=== PATIENT | male | born 2000 | race Caucasian/White ===

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

== ENCOUNTER 2020-01-12 15:01 | Emergency (ER) | payer OTHER ==
[~2020-01-12] VITALS: Ht 185.4 cm; Wt 66.9 kg
[2020-01-12 15:10] VITALS: BP 133/86
--- NOTE | 2020-01-12 15:16 | NUR ---
PT AMBULATED TO ER BED 02
--- NOTE | 2020-01-12 15:20 | NUR ---
BIB MOTHER C/O COUGH, RUNNY NOSE X 3 DAYS, LEFT EAR PAIN X TODAY. PT AWAKE , ALERT , AFIBRILE , AMBULATORY WITH STEADY GAIT , DENIES LEFT EAR TRUAMA , NO HEARING DEFICIT. MED HX: DENIES
--- NOTE | 2020-01-12 15:30 | NUR ---
dr branham evaluating pt.
[2020-01-12 15:36] VITALS: BP 133/86
--- NOTE | 2020-01-12 15:37 | NUR ---
Patient discharged with v/s stable. Written and verbal after care instructions given and Dr Branham explained regarding otitis media infection. Patient alert, oriented and verbalized understanding of instructions. Ambulatory with by parent. All questions addressed prior to discharge. ID band removed. Patient advised to follow up with PMD. Rx of augmentin given. Patient educated on indication of medication including possible reaction and side effects. Opportunity to ask questions provided and answered.Dr branham discharge pt.
--- NOTE | 2020-01-12 15:40 | NUR ---
Gema simons in [facility] - 01/12/20 at [address] branham at bedside evaluating pt.
== END 2020-01-12 15:37 | disposition home or self-care (01) ==
LOC: MED 15:01
DX: H66.92 Otitis media, unspecified, left ear (principal); R05 Cough; J34.89 Other specified disorders of nose and nasal sinuses
CPT/HCPCS: 99283

== ENCOUNTER 2020-01-12 17:43 | Emergency (ER) | payer OTHER ==
[~2020-01-12] VITALS: Ht 185.4 cm; Wt 66.7 kg
[2020-01-12 18:07] VITALS: BP 115/67
[2020-01-12] MEDS ORDERED: ONDANSETRON 4 MG TAB PO ONE (18:10)
--- NOTE | 2020-01-12 18:15 | NUR ---
19 Y/O MALE PRESENTS WITH VOMITING/NAUSEA STARTING X1 HOUR AGO AFTER LEAVING ER FOR EAR INFECTION. REPORTS TO ABD PAIN AT THIS TIME. BOWEL SOUNDS NORMO ACTIVE. ABD SOFT/NON TENDER AT THIS TIME. RESP EVEN AND UNLABORED. NO PMH NKA
--- NOTE | 2020-01-12 18:40 | NUR ---
Pt resting in bed with parents at bedside. No further emesis episodes.
--- NOTE | 2020-01-12 19:01 | NUR ---
Transfer of care and report given to BABAR Alex
[2020-01-12 19:05] VITALS: BP 115/67
--- NOTE | 2020-01-12 19:08 | NUR ---
Patient discharged by Dr. Menendez with v/s stable. Written and verbal after care instructions given and explained.Patient alert, oriented and verbalized understanding of instructions. Ambulatory with steady gait. All questions addressed prior to discharge. ID band removed. Patient advised to follow up with PMD. Rx of Zofran 4mg was given. Patient educated on indication of medication including possible reaction and side effects. Opportunity to ask questions provided and answered.
== END 2020-01-12 19:08 | disposition home or self-care (01) ==
LOC: MED 17:43
DX: A08.4 Viral intestinal infection, unspecified (principal)
CPT/HCPCS: 99283; Q0162

== ENCOUNTER 2020-01-21 15:05 | Emergency (ER) | payer OTHER ==
[~2020-01-21] VITALS: Ht 182.9 cm; Wt 65.8 kg
[2020-01-21 15:19] VITALS: BP 122/82
--- NOTE | 2020-01-21 15:20 | NUR ---
pt ambulated to rm 11 with steady gait.
--- NOTE | 2020-01-21 15:29 | NUR ---
19 M Seen x3 weeks at [facility] for left ear pain x 1 week. Pt finished full course of antibiotics. Pt reports hearing "throbbing" noise in left ear. Upon observation with otoscope, ear is clear. Pt in bed resting comfortably. bed at lowest position and locked, bed rails up x1
--- NOTE | 2020-01-21 17:07 | NUR ---
Patient discharged with v/s stable. Written and verbal after care instructions given and explained. Patient alert, oriented and verbalized understanding of instructions. Ambulatory with steady gait. All questions addressed prior to discharge. ID band removed. Patient advised to follow up with PMD. Rx of Augmentin and Ibuprofen given. Patient educated on indication of medication including possible reaction and side effects. Opportunity to ask questions provided and answered.
[2020-01-21 17:08] VITALS: BP 117/78
== END 2020-01-21 17:07 | disposition home or self-care (01) ==
LOC: MED 15:05
DX: H66.92 Otitis media, unspecified, left ear (principal)
CPT/HCPCS: 99283

== ENCOUNTER 2020-07-22 20:10 | Emergency (ER) | payer OTHER ==
[~2020-07-22] VITALS: Ht 188 cm; Wt 72.6 kg
[2020-07-22 20:27] VITALS: BP 130/93
--- NOTE | 2020-07-22 20:30 | NUR ---
triaged and waiting in lobby.
--- NOTE | 2020-07-22 21:23 | NUR ---
To ED bed 12
--- NOTE | 2020-07-22 21:25 | NUR ---
20 YO M BIB SELF FOR C/C OF 6/10 BILATERAL ARM PAIN POST WORKING OUT ON FRIDAY 07/20. PER PT HIS SORENESS HAS BEEN GETTING INCREASINGLY WORSE SINCE THEN AND HAS ALOT OF PAIN WHEN MOVING ARMS. PERIPHERAL PULSES ARE EQUAL AND REGULAR. DENIES OTC MEDS FOR PAIN. DENIES FEVER, COUGH, SOB, AND TRAVEL. NKA NO MED HX NO RX
[2020-07-22 21:30] LABS: BASOPHILS % (AUTO) 0.5 % (0.0-2.0); EOSINOPHILS # (AUTO) 0.3 K/uL (0-0.4); EOSINOPHILS % (AUTO) 3.3 % (0.0-4.0); HEMATOCRIT 41.6 % (36-52); HEMOGLOBIN 14.5 g/dL (12.0-18.0); LYMPHOCYTES # (AUTO) 2.2 K/uL (2.0-11.5); LYMPHOCYTES % (AUTO) 24.4 % (20.5-51.1); MEAN CORPUSCULAR HEMOGLOBIN 31 pg (27-31); MEAN CORPUSCULAR HGB CONC 35 g/dL (33-37); MEAN CORPUSCULAR VOLUME 87.9 fL (80-94); MONOCYTES # (AUTO) 0.6 K/uL (0.8-1.0); NEUTROPHILS # (AUTO) 5.8 K/uL (1.8-7.7); NEUTROPHILS % (AUTO) 64.8 % (42.2-75.2); PLATELET COUNT (AUTO) 278 K/uL (140-450); RED BLOOD CELL COUNT(AUTO) 4.74 MIL/uL (4.20-6.10); RED CELL DISTRIBUTION WIDTH 13.1 % (11.6-13.7)
[2020-07-22] MEDS ORDERED: KETOROLAC 30 MG/ML VIAL IM ONE (21:55)
[2020-07-22 21:58] LABS: ANION GAP 10.8 (8-16); CARBON DIOXIDE 30.3 mmol/L (21-32); CREATININE 1.2 mg/dL (0.6-1.3); POTASSIUM 4.1 mmol/L (3.5-5.1); TOTAL BILIRUBIN 0.5 mg/dL (0.0-1.0)
[2020-07-22 21:59] LABS: ALBUMIN 4.3 g/dL (3.4-5.0)
[2020-07-22] MEDS ORDERED: NACL 0.9% 1,000 ML IV ONE ×2 (22:40→23:05)
--- NOTE | 2020-07-22 23:01 | NUR ---
PT STATES HIS PAIN IS NOW 5/10. DENIES NEEDING FURTHER PAIN MANAGEMENT AT THIS TIME.
[2020-07-22] MEDS ORDERED: LACTATED RINGERS 1,000 ML IV ONE (23:45)
[2020-07-22] MEDS ORDERED: DEXT 5% / NACL 0.45% 1,000 ML IV ONE (23:45)
--- NOTE | 2020-07-22 23:59 | NUR ---
PT AMBULATED TO RR WITH STEADY GAIT TO PROVIDE UA
[2020-07-23 00:03] LABS: CKMB RELATIVE INDEX 0.4 (0.0-2.5); CREATINE KINASE MB 168.5 ng/mL (0-3.6)
--- NOTE | 2020-07-23 00:16 | NUR ---
SPOKE WITH MARY- CYLINDER PRESS OPERATOR FOR [facility]. SHE STATED THE PT WILL BE TRANSFERED TO ANOTHER FACILITY THAT IS CONTRACTED WITH PTS INSURANCE.
--- NOTE | 2020-07-23 00:16 | NUR ---
Gema simons in [facility] - 07/23/20 at 0047 by [facility] SPOKE WITH MARY- MEETING MANAGER FOR [facility]. SHE STATED THE PT WILL BE TRANSFERED TO ANOTHER FACILITY THAT IS CONTRACTED WITH PTS INSURANCE.
--- NOTE | 2020-07-23 00:30 | NUR ---
SPOKE WITH PTS MOTHER BENNIE CABAN TO UPDATE ON PLAN OF CARE AND TRANSFER TO ANOTHER FACILITY. [phone]
[2020-07-23] MEDS ORDERED: LACTATED RINGERS 1,000 ML IV ONE (00:45)
--- NOTE | 2020-07-23 00:46 | NUR ---
RENAE SWAB COLLECTED AND SENT TO LAB
[2020-07-23] MEDS ORDERED: LORazepam 1 MG TAB PO ONE (00:50)
[2020-07-23 00:53] LABS: APPEARANCE,URINE SL CLOUDY (CLEAR); BILIRUBIN,URINE 2+ (NEGATIVE); BLOOD, URINE 3+ (NEGATIVE); LEUKOCYTE ESTERASE ,URINE TRACE (NEGATIVE); NITRITE, URINE NEGATIVE (NEGATIVE); PH,URINE 6.5 (5.0-9.0); UGLUCOSE NEGATIVE (NEGATIVE)
--- NOTE | 2020-07-23 01:00 | NUR ---
PT RESTING IN BED COMFORTABLY. EQUAL CHEST RISE AND FALL. MOTOR COACH OPERATOR/PULSE OX IN PLACE. BED LOCKED AND IN LOWEST POSITION. ALL PT NEEDS MET AT THIS TIME.
[2020-07-23 01:38] LABS: WBC,URINE 0-5 /HPF (0-5)
[2020-07-23 01:41] LABS: HYALINE CASTS, URINE 0-10 /LPF (None Seen)
[2020-07-23 01:42] LABS: URINE AMORPHOUS URATE 1+ /HPF (None Seen)
[2020-07-23 01:43] LABS: COLOR,URINE BROWN (YELLOW)
--- NOTE | 2020-07-23 01:45 | NUR ---
MAINTENANCE FLUIDS OF D5/0.45NS WAS NON ADMINSTERED DUE TO FINISHING 2 NS BOLUS AND 1 LACTATED RINGER BOLUS. BOLUS' WERE COMPLETED JUST PRIOR TO PT TRANSFER. ERMD MADE AWARE.
--- NOTE | 2020-07-23 01:45 | NUR ---
CALLED [facility] AND SPOKE TO STANISLAW MULLER RN TO GIVE REPORT ABOUT PT THAT WILL BE TRANFERED TO THIS FACILITY. [facility] EXT [phone]
[2020-07-23 01:55] VITALS: BP 147/103
--- NOTE | 2020-07-23 01:55 | NUR ---
Patient to be transferred to [facility]. Is being transferred due to INSURANCE REQUEST. Receiving facility has accepting physician and available space. ER physician has signed transfer form. Patient or responsible republican has agreed to transfer and signed form. Patient belongings inventoried and will be sent with patient. Copy of nursing notes, lab reports, EKG, Physicians Orders and X-rays to be sent with patient. Report called to STANISLAW MULLER RN at receiving facility. [facility] ambulance service has been called for transfer.
== END 2020-07-23 01:55 | disposition short-term general hospital (02) ==
LOC: MED 20:10
DX: M79.10 Myalgia, unspecified site (principal)
CPT/HCPCS: 36415; 80053; 81001; 82550; 82553; 85025; 87086; 87426; 96360; 96361; 96372; 99284; J1885; J7030

== ENCOUNTER 2022-02-25 18:52 | Emergency (ER) | payer OTHER ==
[~2022-02-25] VITALS: Ht 175.3 cm; Wt 71.2 kg
[2022-02-25 19:00] VITALS: BP 144/93
[2022-02-25] MEDS ORDERED: ACETAMINOPHEN EXTRA STRENGTH 500 MG TAB PO ONE (19:20)
--- NOTE | 2022-02-25 19:46 | NUR ---
22 Y/O MALE BIBS, C/O FEVER X2 DAYS. PATIENT PRESENTS TO ED WITH CONGESTION ANDSPEAKING IN FULL SENTENCES. PT STATES TEMP THIS AFTERNOON- 104F. PT TOOK UNRECALLED MEDICATION WHICH PROVIDED MILD RELIEF. DENIES N/V/D; SKIN IS PINK/WARM/DRY; AAOX4 WITH EVEN AND STEADY GAIT; LUNGS CLEAR BL; HR EVEN AND REGULAR; PT DENIES ANY FEVER, CP, SOB, OR COUGH AT THIS TIME; PATIENT STATES PAIN OF 0/10 AT THIS TIME; VSS; PATIENT POSITIONED FOR COMFORT; HOB ELEVATED; BEDRAILS UP X2; BED DOWN. ER MD MADE AWARE OF PT STATUS. NO OTHER HOUSEHOLD MEMBERS WITH SAME SYMPTOMS. PMH: NONE MEDS: NONE NKA
--- NOTE | 2022-02-25 19:51 | NUR ---
XRAY AT BEDSIDE
[2022-02-25] MEDS ORDERED: ACET-10509 PO ×2 (19:55→22:35)
[2022-02-25] MEDS ORDERED: PROM118S5 PO ×2 (19:55→22:35)
[2022-02-25 20:54] VITALS: BP 138/76
--- NOTE | 2022-02-25 20:55 | NUR ---
Patient discharged with v/s stable. Written and verbal after care instructions given and explained. Patient alert, oriented and verbalized understanding of instructions. Ambulatory with steady gait. All questions addressed prior to discharge. ID band removed. Patient advised to follow up with PMD. Rx of PROMETHAZINE-Dm SYRUP AND ACETAMINOPHEN given. Patient educated on indication of medication including possible reaction and side effects. Opportunity to ask questions provided and answered. VSS, A/OX4, AMBULATORY, UNLABORED BREATHING, AND CALM DEMEANOR.
== END 2022-02-25 20:53 | disposition home or self-care (01) ==
LOC: MED 18:52
DX: B34.9 Viral infection, unspecified (principal); Z79.899 Other long term (current) drug therapy
CPT/HCPCS: 71045; 99283

== ENCOUNTER 2023-09-13 00:05 | Emergency (ER) | payer OTHER ==
[~2023-09-13] VITALS: Ht 188 cm; Wt 68.0 kg
[~2023-09-13 00:05] MED LIST: ACET-10509 PO; PROM118S5 PO
[2023-09-13 00:09] VITALS: BP 134/78; PULSE 68; RESP 16; TEMP 97.3; O2SAT 99
[2023-09-13 00:59] LABS: FLU A ANTIGEN negative (NEGATIVE); FLU B ANTIGEN NEGATIVE (NEGATIVE)
[2023-09-13] MEDS ORDERED: PHENYLEPHRINE 1% 15 ML BTL NS STA (01:29)
[2023-09-13] MEDS ORDERED: FLONAS NS (01:41)
[2023-09-13 01:50] VITALS: BP 134/78; PULSE 68; RESP 16; TEMP 97.3; O2SAT 99
== END 2023-09-13 01:50 | disposition home or self-care (01) ==
LOC: MED 00:05
DX: J00 Acute nasopharyngitis [common cold] (principal); J06.9 Acute upper respiratory infection, unspecified; Z20.822 Contact with and (suspected) exposure to COVID-19; Z79.899 Other long term (current) drug therapy
CPT/HCPCS: 99283